=== PATIENT | female | born 1965 | race Caucasian/White ===

== ENCOUNTER → 2016-10-26 | Day surgery (SDC) | payer BC ==
[~2016-10-26] MED LIST: ALPRAZOLAM ER1 MG PO; AMBIEN CR PO; AMBIEN12.5 M1 PO; AMBIEN12.5 MG PO; AMOXICILLIN500 M1 PO; ANTIVERT PO; BACLOFEN10 MG PO; BUSPIRONE HCL7.5 MG PO; CELEXA20 MG PO; CITALOPRAM PO; DURAGESIC25 MCG EXT; FAMOTIDINE PO; LISINOPRIL10 MG PO; LORTAB 5/500 TA1 TA2; METHADONE PO; METHOCARBAMOL500 MG PO; MIRALAX119 GM PO; MIRALAX17 GM PO; MUSCLE RELAXER; OXYCODON HCL-1 UDTAB PO; OXYCODONE-ACET1 EAC1 PO; OXYCONTIN10 MG PO; OXYCONTIN20 MG PO; PERCOCET 10/3251 TAB PO; PERCOCET PO; PERCOCET10 PO; PERIDEX480 ML PO; PHENERGAN PO; PHENERGAN25 M1 PO; PRILOSEC20 MG PO; SERTRALINE HCL100 M1 PO; TIZANIDINE HCL4 M1 PO; XANAX0.5 M1 PO; XANAX1 MG PO; ZOLOFT PO
--- NOTE | ~2016-10-26 | OR ---
Unit #: [id number] #: [id number] Patient: NAHOMY JIMÉNEZ [id number] [address] [place], [place] [address] [id number] O MR#: [id number] NAME: NAHOMY JIMÉNEZ ROOM: Date of Procedure: 10/26/2016 Admission Date: 10/26/2016 Surgeon: Leonardo Peter M.D. : 1965 Attending Physician: Leonardo Peter M.D. Primary Care Physician: Francisco Jaime M.D. OPERATIVE REPORT JOB NOTE: CC: PA[facility]ENTER PREOPERATIVE DIAGNOSES 1. Neck pain. 2. Cervical facet disease. 3. Cervical spondylosis. POSTOPERATIVE DIAGNOSES 1. Neck pain. 2. Cervical facet disease. 3. Cervical spondylosis. PROCEDURE PERFORMED Cervical facet injection x2 levels with intravenous sedation and fluoroscopic guidance for needle localization. INDICATIONS FOR PROCEDURE The patient is a 51-year-old female with return of neck pain associated with known significant bilateral C4-C5 degenerative facet disease. She has partial improvement in chronic issues with medical management and the pain flares. Facet injections have been the most efficacious. She is unable to get radiofrequency procedures done. Based on history, pathology, symptomatology, and good response to treatment, we are going to proceed with facet injection at 2 levels today. DESCRIPTION OF PROCEDURE The patient was placed in the seated position. Standard monitors were applied. 4 mg of Versed and 100 mcg of fentanyl were given for sedation and anxiolysis, which were adequate. Vital signs remained stable. Sterile prep and drape then of the cervical area was performed. The skin then to the right of midline at the C4-C5 level was localized with 1% lidocaine. A 22-gauge Quincke point spinal needle was then advanced with fluoroscopic guidance to bring the needle tip within the edge of the right C4-C5 facet joint. After confirming proper positioning with fluoroscopic guidance, a dose of 1.5 mL of a mixture of 80 mg of Depo-Medrol and 2 mL of 0.25% bupivacaine were deposited, 0.5 mL was placed in the joint, the other 1 mL or so was just outside the joint. The needle was flushed and removed. Procedure #2: Left C4-C5 facet injection. The skin lateral to the C4-C5 facet joint was localized with 1% lidocaine. A 22-gauge Quincke point spinal needle was then advanced to bring the edges of the needle tip to Unit #: [id number] #: [id number] Patient: NAHOMY JIMÉNEZ within the edge of the C4-C5 facet joint. After confirming proper positioning with fluoroscopy, a dose of 1.5 mL of the previous mixture of medication was used. Again, a 0.5 mL in the joint and about 1 mL just outside the joint. The patient tolerated the procedure otherwise well and was discharged to the recovery room in stable condition. Dictated by... Leonardo Peter M.D. JENNY/derek TD: 10/26/2016 23:28 JOB #: [id number] OPERATIVE REPORT Page 1 of 1 X Leonardo Peter MD X PROCEDURE OPERATIVE NOTE
== END | disposition home or self-care (01) ==
LOC: CCSC 08:25
DX: M47.892 Other spondylosis, cervical region (principal)
CPT/HCPCS: J1040; J2250; J3010

== ENCOUNTER 2016-10-31 07:25 | Emergency (ER) | payer BC ==
--- NOTE | ~2016-10-31 | CT4 ---
[facility] A Service of [facility] RADIOLOGY TEXT RESULTS PATIENT: NAHOMY JIMÉNEZ LOCATION: SED : 67 UNIT #: [id number] AGE: [address]: Baljit Howard MD SEX: F ORDER DR: [id number] [place] [id number] E MR#: [id number] Acc #: [id number] NAME: NAHOMY JIMÉNEZ. : 1965 SEX: F STUDY DATE/TIME: 10/31/2016 8:22 UNIT: SED ROOM: STUDY DESCRIPTION: CT Abd and Pelv Wo Cont Attending Physician: Baljit Howard M.D. Ordering Physician: Baljit Howard M.D. Primary Care Physician: Francisco Jaime M.D. MEDICAL IMAGING REPORT This report is preliminary unless electronic signature is present. EXAM CT abdomen and pelvis without contrast 10/31/2016 HISTORY 51-year-old female with abdominal pain beginning this morning. COMPARISON CT abdomen and pelvis 08/15/2010 TECHNIQUE Helical scan performed through the abdomen and pelvis without oral or IV contrast. Coronal and sagittal reformatted images. This CT exam was performed with one or more of the following radiation dose reduction techniques: Automatic exposure control, adjustment of mA and/or kV according to patient size, and iterative reconstruction. FINDINGS Visualized lung bases are unremarkable. Diffuse fatty infiltration of the liver. The spleen, pancreas, both adrenal glands, and both kidneys are unremarkable allowing for lack of IV contrast. Gallbladder is surgically absent. Abdominal aorta normal in course and caliber. Small bowel is unremarkable without obstruction. Appendix is grossly normal. Colon unremarkable. No free fluid or free air. The urinary bladder, uterus, and both adnexa are unremarkable. No free pelvic fluid. No acute bony abnormality. IMPRESSION 1. Hepatic steatosis. [facility] A Service of [facility] RADIOLOGY TEXT RESULTS PATIENT: NAHOMY JIMÉNEZ LOCATION: SED : 67 UNIT #: [id number] AGE: [address]: Baljit Howard MD SEX: F ORDER DR: 2. Normal appendix. 3. Negative for urinary tract stones or hydronephrosis. 4. Cholecystectomy. Dictated by... Francisco Corona M.D. THIS IS AN ELECTRONICALLY VERIFIED REPORT Francisco Corona M.D. at 11/01/2016 8:42 AM DAJA/kenia TD: 10/31/2016 20:48 JOB #: [id number] MEDICAL IMAGING REPORT Page 1 of 1
[~2016-10-31 07:25] MED LIST changes: -AMBIEN12.5 MG PO; -BUSPIRONE HCL7.5 MG PO; -CELEXA20 MG PO; -CITALOPRAM PO; -OXYCODONE-ACET1 EAC1 PO; -PERCOCET PO; -PERCOCET10 PO; -TIZANIDINE HCL4 M1 PO; -XANAX1 MG PO
[2016-10-31 07:51] LABS: BASOPHIL# 0.1 X10e3 (0-0.3); BASOPHIL% 0.5 % (0-2.5); DIFF IND NO; EOSINOPHIL# 0.1 X10e3 (0-0.7); EOSINOPHIL% 0.6 % (0.0-7.0); HEMOGLOBIN 17.1 gm/dL (12.0-16.0); LYMPHOCYTE# 0.8 X10e3 (1.0-3.5); LYMPHOCYTE% 7.1 % (17.0-45.0); MEAN CELL VOLUME 88.3 FL (83-96); MEAN CORPUSCULAR HEMOGLOBIN 30.8 PG (28-34); MEAN CORPUSCULAR HGB CONC 34.9 g/dL (30-36); MONOCYTE# 0.6 X10e3 (0-1.0); MONOCYTE% 5.5 % (3.0-12.0); NEUTROPHIL# 9.5 X10e3 (1.5-7.1); NEUTROPHIL% 86.3 % (40-75); PLATELET COUNT 138 X10e3 (140-420); RED BLOOD COUNT 5.55 X10e (3.90-5.30); RED CELL DISTRIBUTION WIDTH 13.8 % (11.0-15.5)
[2016-10-31 08:11] LABS: ALBUMIN SERUM 5.3 g/dL (3.5-5.0); BILIRUBIN, DIRECT 0.2 mg/dL (0.0-0.2); BILIRUBIN,INDIRECT 0.7 mg/dL (0.0-0.9); BILIRUBIN,TOTAL 0.9 mg/dL (0.2-2.0); BUN/CREATININE RATIO 28.88; CALCIUM SERUM 9.7 mg/dL (8.4-10.2); CREATININE SERUM 0.9 mg/dL (0.6-1.4); GLOM FILT RATE Estimated 74.6 mL/min (>60); POTASSIUM 3.8 mmol/L (3.5-5.1); PROTEIN TOTAL SERUM 8.2 g/dL (6.0-8.3)
[2017-04-05] MEDS ORDERED: TIZANIDINE HCL4 M1 PO (11:20)
[2017-04-05] MEDS ORDERED: PHENERGAN PO (11:20)
[2017-04-05] MEDS ORDERED: CELEXA20 MG PO (11:20)
[2017-04-05] MEDS ORDERED: OXYCONTIN20 MG PO (11:21)
[2017-04-05] MEDS ORDERED: XANAX1 MG PO (11:21)
[2017-04-05] MEDS ORDERED: PERCOCET10 PO (11:21)
[2017-04-05] MEDS ORDERED: AMBIEN12.5 MG PO (11:22)
[2017-04-05] MEDS ORDERED: BUSPIRONE HCL7.5 MG PO (11:22)
== END 2016-10-31 09:34 | disposition home or self-care (01) ==
LOC: SED 07:25
PROVIDERS: Emergency Medicine
DX: K29.00 Acute gastritis without bleeding (principal); K52.9 Noninfective gastroenteritis and colitis, unspecified; F31.9 Bipolar disorder, unspecified; F17.210 Nicotine dependence, cigarettes, uncomplicated; Z90.49 Acquired absence of other specified parts of digestive tract; Z88.5 Allergy status to narcotic agent; Z88.8 Allergy status to other drugs, medicaments and biological substances; Z79.899 Other long term (current) drug therapy
CPT/HCPCS: 36415; 74176; 80048; 80076; 82150; 83690; 85025; 96372; 96374; 96376; 99284; C9113; G0480; J1170; J2550

== ENCOUNTER → 2016-11-02 | Day surgery (SDC) | payer BC ==
[~2016-11-02] MED LIST changes: +AMBIEN12.5 MG PO; +BUSPIRONE HCL7.5 MG PO; +CELEXA20 MG PO; +CITALOPRAM PO; +OXYCODONE-ACET1 EAC1 PO; +PERCOCET PO; +PERCOCET10 PO; +TIZANIDINE HCL4 M1 PO; +XANAX1 MG PO
--- NOTE | ~2016-11-02 | OR ---
Unit #: [id number] #: [id number] Patient: NAHOMY JIMÉNEZ [id number] [address] [place], [place] [address] [id number] O MR#: [id number] NAME: NAHOMY JIMÉENZ ROOM: Date of Procedure: 11/02/2016 Admission Date: 11/02/2016 Surgeon: Leonardo Peter M.D. : 1965 Attending Physician: Leonardo Peter M.D. Referring Physician: Henri Crain M.D. Primary Care Physician: Francisco Jaime M.D. OPERATIVE REPORT PREOPERATIVE DIAGNOSES Neck pain, cervical facet disease and cervical spondylosis. POSTOPERATIVE DIAGNOSES Neck pain, cervical facet disease and cervical spondylosis. PROCEDURE PERFORMED Cervical facet injection x2 levels with intravenous sedation under fluoroscopic guidance for needle localization. HISTORY The patient is a 51-year-old female with neck pain associated with degenerative cervical facet disease. She is not a surgical candidate. Medications helped somewhat when the pain flares. Facet injections have been the only modality to adequately settle these symptoms down. Typically a single injection is sufficient. She recently had injection that helped, but not to its typical degree, so we are going to proceed with a second injection today and then hopefully follow the patient up in several weeks' time at [facility]. DESCRIPTION OF PROCEDURE PROCEDURE #1: Right cervical facet injection with intravenous sedation under fluoroscopic guidance for needle localization: Fluoroscopy was used to identify the location of the right C4-5 facet joint. The skin lateral to this was localized with 1% lidocaine. A 22-gauge Quincke point needle was then advanced with biplanar fluoroscopic guidance to bring the needle tip to within the edge of the right C4-5 facet joint. After confirming proper positioning with fluoroscopy, a dose of 1 mL of a mixture of 80 mg of Depo-Medrol and 1 mL of 0.25% bupivacaine were deposited, 0.5 mL was placed in the joint and 0.5 mL just outside the joint. The needle was flushed and removed. PROCEDURE #2: Left C4-5 facet injection with fluoroscopic guidance: Fluoroscopy was used to identify the left C4-5 facet joint. The skin lateral to this was localized with 1% lidocaine. A 22-gauge Quincke point needle was then advanced with biplanar fluoroscopy to get the needle tip to within the edge of the left C4-5 facet joint. After confirming this with fluoroscopy, a dose of 1 mL of a mixture of 80 mg of Depo-Medrol and 1 mL of 0.25% bupivacaine were deposited. The needle was flushed and removed. The patient tolerated the entirety of the procedure well and was discharged to the recovery room in stable condition. Unit #: [id number] #: [id number] Patient: NAHOMY JIMÉNEZ Yanet Dictated by... Ledy Cortes/derek TD: 11/02/2016 10:05 JOB #: [id number] OPERATIVE REPORT Page 1 of 1 X Leonardo Peter MD X PROCEDURE OPERATIVE NOTE
== END | disposition home or self-care (01) ==
LOC: CCSC 07:59
DX: M47.892 Other spondylosis, cervical region (principal)
CPT/HCPCS: J1040; J2250; J3010

== ENCOUNTER → 2016-11-09 | Day surgery (SDC) | payer BC ==
--- NOTE | ~2016-11-09 | OR ---
Unit #: [id number] #: [id number] Patient: NAHOMY JIMÉNEZ [id number] [address] [place], [place] [address] [id number] O MR#: [id number] NAME: NAHOMY JIMÉNEZ ROOM: Date of Procedure: 11/09/2016 Admission Date: 11/09/2016 Surgeon: Leonardo Peter M.D. : 1965 Attending Physician: Leonardo Peter M.D. Referring Physician: Leonardo Peter M.D. Primary Care Physician: Francisco Jaime M.D. OPERATIVE REPORT JOB NOTE: CC: PAIN CENTER PREOPERATIVE DIAGNOSES Neck pain and cervical facet disease. POSTOPERATIVE DIAGNOSES Neck pain and cervical facet disease. PROCEDURE PERFORMED Cervical facet injection x2 levels with intravenous sedation and fluoroscopic guidance for needle localization. INDICATIONS FOR PROCEDURE The patient is a 51-year-old female with return of neck pain. She notes significant facet disease. She is unable to get radiofrequency ablation, which might last longer. Generally, she has done fairly well with medical management and p.r.n. single facet injections. If that does not work as well, the plan is to trial a small series of injections if that work somewhat better. Plan is to repeat a final injection today. DESCRIPTION OF PROCEDURE The patient was placed in a seated position. Standard monitors were applied. 4 mg of Versed and 100 mcg of fentanyl were given for sedation and anxiolysis, which were adequate. Vital signs remained stable. Sterile prep and drape then of the cervical area was performed. Procedure #1: Right C4-C5 facet injection. The skin to the right of midline was localized overlying the right C4-C5 facet joint. Fluoroscopy was then used to help direct a 22-gauge Quincke point spinal needle to within the edge of that right C4-C5 facet. After confirming this with fluoroscopy, a dose of 1 mL of a mixture of 80 mg of Depo-Medrol and 1 mL of 0.25% bupivacaine were deposited. The needle was flushed and removed. The patient tolerated this part of procedure well. Procedure #2: Left C4-C5 facet injection with fluoroscopic guidance. Fluoroscopy was used to identify the location of the left L4-L5 facet joints. The skin lateral to this was localized with 1% lidocaine. A 22-gauge Quincke point needle was then advanced with biplanar fluoroscopic guidance to bring the needle tip to within the edge of the left C4-C5 facet joint. After confirming this, a dose of 1 mL of mixture of 80 mg Depo-Medrol, 1 mL of 0.25% bupivacaine were deposited, 0.5 mL within the joint and 0.5 mL just outside. The needle was flushed and removed. The Unit #: [id number] #: [id number] Patient: NAHOMY JIMÉNEZ patient tolerated the entire procedure well and was discharged to the recovery room in stable condition. Dictated by... Ledy Cortes/derek TD: 11/09/2016 09:42 JOB #: [id number] OPERATIVE REPORT Page 1 of 1 X Leonardo Peter MD X PROCEDURE OPERATIVE NOTE
== END | disposition home or self-care (01) ==
LOC: CCSC 08:11
DX: M47.812 Spondylosis without myelopathy or radiculopathy, cervical region (principal)
CPT/HCPCS: J1040; J2250; J3010

== ENCOUNTER → 2017-01-11 | Day surgery (SDC) | payer BC ==
--- NOTE | ~2017-01-11 | OR ---
Unit #: [id number] #: [id number] Patient: NAHOMY JIMÉNEZ [id number] [address] [place], [place] [address] [id number] O MR#: [id number] NAME: NAHOMY JIMÉNEZ ROOM: Date of Procedure: 01/11/2017 Admission Date: 01/11/2017 Surgeon: Leonardo Peter M.D. : 1965 Attending Physician: Leonardo Peter M.D. Primary Care Physician: Francisco Jaime M.D. OPERATIVE REPORT PREOPERATIVE DIAGNOSES Neck pain and cervical facet disease. POSTOPERATIVE DIAGNOSES Neck pain and cervical facet disease. PROCEDURE PERFORMED Cervical facet injection x2 levels with intravenous sedation and fluoroscopic guidance for needle localization. INDICATIONS FOR PROCEDURE The patient is a 51-year-old female with return of neck pain due to known significant C4-C5 facet disease. She refuses radiofrequency ablation. She does best with p.r.n. facet injections every 3 to 4 months. Pain has returned in its typical distribution, so plan, based on history, pathology, symptomatology, and treatment options, is to repeat facet injections. DESCRIPTION OF PROCEDURE Procedure #1: Left C4-C5 facet injection with intravenous sedation and fluoroscopic guidance. 4 mg of Versed and 100 mcg of fentanyl were given for sedation and anxiolysis, which were adequate. Sterile prep and drape of the cervical area was performed. The skin then to the left of midline lateral to the C4-C5 facet joint was localized with 1% lidocaine. A 22-gauge Quincke point needle was advanced with fluoroscopic guidance to bring the needle tip to within the edge of the left C4-C5 facet joint. After confirming proper positioning, dose of 1 mL of mixture of 80 mg of Depo-Medrol and 1 mL of 0.25% bupivacaine were deposited. The needle was flushed and removed. The patient tolerated this part of procedure well. Procedure #2: Right C4-C5 facet injection with fluoroscopic guidance. Fluoroscopy was used to identify the right C4-C5 facet joint. The skin lateral to this was then localized with 1% lidocaine. A 22-gauge Quincke point spinal needle was advanced with fluoroscopic guidance to bring the needle tip to within the edge of the right C4-C5 facet joint. After confirming proper positioning, dose of 1 mL of a mixture of 80 mg of Depo-Medrol and 1 mL of 0.25% bupivacaine were deposited. The patient tolerated the procedure well. The needle was flushed and removed. She was discharged to recovery room in stable condition. Unit #: [id number] #: [id number] Patient: NAHOMY JIMÉNEZ Dictated by... Ledy Cortes/derek TD: 01/11/2017 20:07 JOB #: [id number] OPERATIVE REPORT Page 1 of 1 X Leonardo Peter MD X PROCEDURE OPERATIVE NOTE
== END | disposition home or self-care (01) ==
LOC: CCSC 07:51
DX: M47.812 Spondylosis without myelopathy or radiculopathy, cervical region (principal); M53.82 Other specified dorsopathies, cervical region; F41.9 Anxiety disorder, unspecified; F32.9 Major depressive disorder, single episode, unspecified; Z88.6 Allergy status to analgesic agent; Z88.8 Allergy status to other drugs, medicaments and biological substances; Z79.891 Long term (current) use of opiate analgesic; Z79.899 Other long term (current) drug therapy
CPT/HCPCS: J1040; J2250; J3010

== ENCOUNTER 2017-02-09 08:10 | Emergency (ER) | payer BC ==
--- NOTE | ~2017-02-09 | CT71 ---
[facility] A Service of [facility] RADIOLOGY TEXT RESULTS PATIENT: NAHOMY JIMÉNEZ LOCATION: SED : 67 UNIT #: [id number] AGE: [address]: Baljit Howard MD SEX: F ORDER DR: [id number] [place] [address] [id number] E MR#: [id number] Acc #: [id number] NAME: NAHOMY JIMÉNEZ. : 1965 SEX: F STUDY DATE/TIME: 02/09/2017 9:31 UNIT: SED ROOM: STUDY DESCRIPTION: CT Head Wo Contrast Attending Physician: Baljit Howard M.D. Ordering Physician: Baljit Howard M.D. Primary Care Physician: Francisco Jaime M.D. MEDICAL IMAGING REPORT This report is preliminary unless electronic signature is present. EXAM Head CT, no contrast, 02/09/2017. INDICATIONS 51-year-old female with a headache. Woke up with a headache this morning. Diffuse headache symptoms. History of seizures 10 years ago. TECHNIQUE Noncontrast CT of the brain was performed. This CT exam was performed with one or more of the following radiation dose reduction techniques: automatic exposure control, adjustment of mA and/or kV according to patient size, and iterative reconstruction. COMPARISON We have no comparison studies. FINDINGS CT brain Exam is degraded by motion artifact. These were apparently the best images possible and the notes indicate the patient was rescanned. Sulci and ventricles are unremarkable. No midline shift. No evidence of acute intracranial hemorrhage. There is no mass, mass effect or edema to suggest acute infarct and no extraaxial fluid collections are present. The globes are intact. The bones are intact. Sinuses are clear. Incidental tiny choroid plexus calcifications noted. IMPRESSION 1. No clearly acute intracranial process. No evidence of acute intracranial hemorrhage. 2. Motion degraded study. We have no comparisons. [facility] A Service of [facility] RADIOLOGY TEXT RESULTS PATIENT: NAHOMY JIMÉNEZ LOCATION: SED : 67 UNIT #: [id number] AGE: [address]: Baljit Howard MD SEX: F ORDER DR: Dictated by... Yovany Salas M.D. THIS IS AN ELECTRONICALLY VERIFIED REPORT Yovany Salas M.D. at 02/09/2017 1:46 PM JORGE A/leona TD: 02/09/2017 12:38 JOB #: [id number] MEDICAL IMAGING REPORT Page 1 of 1
[~2017-02-09 08:10] MED LIST changes: -AMBIEN12.5 MG PO; -BUSPIRONE HCL7.5 MG PO; -CELEXA20 MG PO; -CITALOPRAM PO; -OXYCODONE-ACET1 EAC1 PO; -PERCOCET PO; -PERCOCET10 PO; -TIZANIDINE HCL4 M1 PO; -XANAX1 MG PO
[2017-02-09] MEDS ORDERED: CITALOPRAM PO (08:16)
[2017-02-09] MEDS ORDERED: PERCOCET PO (08:16)
[2017-04-05] MEDS ORDERED: PHENERGAN PO (11:20)
[2017-04-05] MEDS ORDERED: TIZANIDINE HCL4 M1 PO (11:20)
[2017-04-05] MEDS ORDERED: CELEXA20 MG PO (11:20)
[2017-04-05] MEDS ORDERED: PERCOCET10 PO (11:21)
[2017-04-05] MEDS ORDERED: XANAX1 MG PO (11:21)
[2017-04-05] MEDS ORDERED: OXYCONTIN20 MG PO (11:21)
[2017-04-05] MEDS ORDERED: AMBIEN12.5 MG PO (11:22)
[2017-04-05] MEDS ORDERED: BUSPIRONE HCL7.5 MG PO (11:22)
== END 2017-02-09 10:42 | disposition home or self-care (01) ==
LOC: SED 08:10
DX: G43.909 Migraine, unspecified, not intractable, without status migrainosus (principal); I10 Essential (primary) hypertension; Z90.49 Acquired absence of other specified parts of digestive tract; Z87.891 Personal history of nicotine dependence; Z88.5 Allergy status to narcotic agent; Z88.8 Allergy status to other drugs, medicaments and biological substances; Z79.899 Other long term (current) drug therapy
CPT/HCPCS: 70450; 96372; 99284; J1170; J2550

== ENCOUNTER 2017-02-19 20:32 | Emergency (ER) | payer BC ==
[~2017-02-19] VITALS: Ht 154.9 cm; Wt 71.7 kg
--- NOTE | ~2017-02-19 | CR172 ---
[facility] A Service of [facility] & [facility] RADIOLOGY TEXT RESULTS PATIENT: NAHOMY JIMÉNEZ LOCATION: SED : 67 UNIT #: [id number] AGE: [address]: Bee Schneider SEX: F ORDER DR: [id number] [address] [address] [id number] E MR#: [id number] Acc #: [id number] NAME: NAHOMY JIMÉNEZ : 1965 SEX: F STUDY DATE/TIME: 02/19/2017 21:28 UNIT: SED ROOM: STUDY DESCRIPTION: CR Knee 3 Views Lt Attending Physician: Bee Schneider Pa-C Ordering Physician: Bee Schneider Pa-C Primary Care Physician: Francisco Jaime M.D. MEDICAL IMAGING REPORT This report is preliminary unless electronic signature is present. EXAM Left knee 3 views HISTORY Knee pain and swelling for 5 days. No injury. FINDINGS AP and lateral projection of the knee shows smooth articular anatomy without indication of fracture or dislocation at the major weight-bearing surface of the knee. There is no indication of radiopaque foreign body about the knee surface or joint effusion. IMPRESSION Normal knee. Dictated by... Steve Campuzano M.D. THIS IS AN ELECTRONICALLY VERIFIED REPORT Steve Campuzano M.D. at 02/20/2017 11:20 PM DFL/dominique TD: 02/19/2017 23:41 JOB #: [id number] MEDICAL IMAGING REPORT Page 1 of 1
[~2017-02-19 20:32] MED LIST changes: +CITALOPRAM PO; +PERCOCET PO
[2017-04-05] MEDS ORDERED: PHENERGAN PO (11:20)
[2017-04-05] MEDS ORDERED: TIZANIDINE HCL4 M1 PO (11:20)
[2017-04-05] MEDS ORDERED: CELEXA20 MG PO (11:20)
[2017-04-05] MEDS ORDERED: PERCOCET10 PO (11:21)
[2017-04-05] MEDS ORDERED: OXYCONTIN20 MG PO (11:21)
[2017-04-05] MEDS ORDERED: XANAX1 MG PO (11:21)
[2017-04-05] MEDS ORDERED: AMBIEN12.5 MG PO (11:22)
[2017-04-05] MEDS ORDERED: BUSPIRONE HCL7.5 MG PO (11:22)
== END 2017-02-19 23:38 | disposition home or self-care (01) ==
LOC: SED 20:32
DX: M25.562 Pain in left knee (principal); F17.200 Nicotine dependence, unspecified, uncomplicated; Z88.5 Allergy status to narcotic agent; Z88.8 Allergy status to other drugs, medicaments and biological substances; Z79.899 Other long term (current) drug therapy
CPT/HCPCS: 29530; 73562; 99283

== ENCOUNTER 2017-02-21 03:42 | Emergency (ER) | payer BC ==
[2017-04-05] MEDS ORDERED: TIZANIDINE HCL4 M1 PO (11:20)
[2017-04-05] MEDS ORDERED: CELEXA20 MG PO (11:20)
[2017-04-05] MEDS ORDERED: PHENERGAN PO (11:20)
[2017-04-05] MEDS ORDERED: PERCOCET10 PO (11:21)
[2017-04-05] MEDS ORDERED: OXYCONTIN20 MG PO (11:21)
[2017-04-05] MEDS ORDERED: XANAX1 MG PO (11:21)
[2017-04-05] MEDS ORDERED: BUSPIRONE HCL7.5 MG PO (11:22)
[2017-04-05] MEDS ORDERED: AMBIEN12.5 MG PO (11:22)
== END 2017-02-21 06:37 | disposition home or self-care (01) ==
LOC: CED 03:42
DX: R60.0 Localized edema (principal); F17.200 Nicotine dependence, unspecified, uncomplicated; Z88.5 Allergy status to narcotic agent; Z88.8 Allergy status to other drugs, medicaments and biological substances; Z79.899 Other long term (current) drug therapy
CPT/HCPCS: 29505; 99283

== ENCOUNTER 2017-03-04 16:26 | Observation (INO) | payer BC ==
[~2017-03-04] VITALS: Ht 157.5 cm; Wt 82.0 kg
--- NOTE | ~2017-03-04 | HM ---
Unit #: [id number] #: [id number] Patient: NAHOMY JIMÉNEZ [id number] [address] [place], [place] [address] [id number] I MR#: [id number] NAME: NAHOMY JIMÉNEZ. : 1965 SEX: F STUDY DATE/TIME: 03/05/2017 UNIT: [facility] ROOM: [facility] STUDY DESCRIPTION: Holter monitor Attending Physician: Mita Morales M.D. Primary Care Physician: Francisco Jaime M.D. CARDIOLOGY REPORT EXAM Holter monitor. DATE APPLIED 03/05/2017 DATE SCANNED 03/10/[address] Porfirio Garcia READ BY Porfirio Garcia M.D. INDICATION Chest pain and palpitations, PVCs, PACs. SUMMARY The patient was monitored for 24 hours. There were 102,982 QRS complexes analyzed. Less than 1% were ventricular or supraventricular. The average heart rate was 72 beats per minute. The rhythm was sinus. Minimum heart rate of 54 beats per minute occurred at approximately 10:20 p.m. The maximum heart rate of 118 beats per minute occurred at approximately noon. There were no pauses. SUPRAVENTRICULAR ECTOPY: There were 12 isolated beats with no runs. VENTRICULAR ECTOPY: There were 72 isolated beats with no runs. PATIENT ACTIVATED EVENTS: SYMPTOMS: The patient experienced left arm pain during housework at approximately 5:30 p.m., chest discomfort with drinking coffee at approximately 7:30 p.m., numbness while lying down at approximately 8 o'clock p.m., numbness while lying down at approximately 8:30 p.m., pain, pressure, anxiety and shortness of breath at approximately 12:15 a.m., sharp pain, lightheadedness and stress at approximately 12:30 a.m. and left arm pain while eating lunch at approximately 2:20 a.m. During all of these episodes, the rhythm was sinus, there were no dysrhythmias noted, and the heart rate varied between 60 and 80 beats per minute. IMPRESSION 1. Normal Holter monitor. Unit #: [id number] #: [id number] Patient: NAHOMY JIMÉNEZ 2. Symptoms did not correlate with any dysrhythmias or abnormalities. 3. Less than expected supraventricular and ventricular ectopy. Dictated by... Ledy Gale/meghann TD: 03/10/2017 11:53 JOB #: [id number] CARDIOLOGY REPORT Page 1 of 1 X Porfirio Garcia MD HOLTER MONITOR REPORT
--- NOTE | ~2017-03-04 | US37 ---
[facility] A Service of [facility] RADIOLOGY TEXT RESULTS PATIENT: NAHOMY JIMÉNEZ LOCATION: [address] : [birth year] UNIT #: [id number] AGE: [address]: Mita Morales MD SEX: F ORDER DR: [id number] [facility] [address] [place], [place] [address] [id number] I MR#: [id number] Acc #: [id number] NAME: NAHOMY JIMÉNEZ. : 1965 SEX: F STUDY DATE/TIME: 03/05/2017 10:10 UNIT: [facility] ROOM: [facility] STUDY DESCRIPTION: US Carotid W/Doppler Bilateral Attending Physician: Mita Morales M.D. Ordering Physician: Porfirio Garica M.D. Primary Care Physician: Francisco Jaime M.D. MEDICAL IMAGING REPORT This report is preliminary unless electronic signature is present DATE OF EXAM 03/05/2017 EXAMINATION Bilateral carotid duplex. CLINICAL HISTORY Dizziness, and chest pain x1 week. FINDINGS There is patent flow seen throughout the right common carotid, internal carotid and external carotid arteries. There is some intimal hyperplasia noted throughout, but no significant atherosclerosis is noted. The right common carotid artery peak velocity is 80 cm/sec. The right internal carotid artery peak systolic over end diastolic velocities are: proximal 59/25 cm/sec, mid 44/15 cm/sec, distal 71/36 cm/sec. The right external carotid artery peak velocity is 100 cm/sec, and vertebral artery 39 cm/sec. The right ICA:CCA ratio is 0.9. There is patent flow seen throughout the left common carotid, internal carotid, external carotid arteries. There is some intimal hyperplasia noted throughout the left common carotid artery. There is no significant atherosclerosis that is noted. The left common carotid artery peak velocity is 76 cm/sec. The left internal carotid artery peak systolic over end-diastolic velocities are: proximal 65/33 cm/sec, mid 59/30 cm/sec, distal 116/45 cm/sec. The left external carotid artery peak velocity is 92 cm/sec, and vertebral artery 50 cm/sec. The left ICA:CCA ratio is 1.5. IMPRESSION 1. Normal study of the right carotid artery, with no significant atherosclerosis noted. [facility] A Service of [facility] RADIOLOGY TEXT RESULTS PATIENT: NAHOMY JIMÉNEZ LOCATION: [facility] CICCU3-22 : [birth year] UNIT #: [id number] AGE: [address]: Mita Morales MD SEX: F ORDER DR: 2. Normal study of the left carotid artery, with no significant atherosclerosis noted. 3. Vertebral flow is antegrade bilaterally. Dictated by... Brown Miranda M.D. THIS IS AN ELECTRONICALLY VERIFIED REPORT Brown Miranda M.D. at 03/15/2017 4:11 PM Robin TD: 03/05/2017 16:38 JOB #: [id number] MEDICAL IMAGING REPORT Page 1 of 1 COPY
--- NOTE | ~2017-03-04 | TH ---
Unit #: [id number] #: [id number] Patient: NAHOMY JIMÉNEZ [id number] [address] [address] [id number] I MR#: [id number] NAME: NAHOMY JIMÉNEZ : 1965 SEX: F STUDY DATE/TIME: 03/05/2017 UNIT: [facility] ROOM: [facility] STUDY DESCRIPTION: Stress nuclear Attending Physician: Mita Morales M.D. Primary Care Physician: Francisco Jaime M.D. CARDIOLOGY REPORT EXAM Stress nuclear. FINDINGS Result text under stress test. Please see this report for result text. Dictated by... Ledy Gale/leona TD: 03/08/2017 06:45 JOB #: [id number] CARDIOLOGY REPORT Page 1 of 1 X Porfirio Garcia MD CARDIOLOGY REPORT
--- NOTE | ~2017-03-04 | EKG ---
PATIENT: NAHOMY JIMÉNEZ UNIT #: [id number] Ventricular Rate: 96 BPM Atrial Rate: 96 BPM P-R Interval: 150 ms QRS Duration: 76 ms Q-T Interval: 358 ms QTC Calculation(Bezet): 452 ms P [place]: 65 degrees Calculated R [place]: 2 degrees Calculated T [place]: 47 degrees Diagnosis Line: Normal sinus rhythm Diagnosis Line: Normal ECG Diagnosis Line: When compared with ECG of 21-JAN-2016 10:39, Diagnosis Line: No significant change was found Diagnosis Line: Confirmed by HEATHER SNYDER MD ([id number]) on 03/04/2017 Diagnosis Line: 5:05:21 PM INTERPRETING MD: CLAUDIO TAVAREZ
--- NOTE | ~2017-03-04 | EKG ---
PATIENT: NAHOMY JIMÉNEZ UNIT #: [id number] Ventricular Rate: 63 BPM Atrial Rate: 63 BPM P-R Interval: 170 ms QRS Duration: 78 ms Q-T Interval: 434 ms QTC Calculation(Bezet): 444 ms P [place]: 74 degrees Calculated R [place]: 44 degrees Calculated T [place]: 22 degrees Diagnosis Line: Normal sinus rhythm Diagnosis Line: Normal ECG Diagnosis Line: When compared with ECG of 04-MAR-2017 16:40, Diagnosis Line: Vent. rate has decreased BY 33 BPM Diagnosis Line: Confirmed by HEATHER SNYDER MD ([id number]) on 03/06/2017 Diagnosis Line: 5:52:00 PM INTERPRETING MD: CLAUDIO TAVAREZ
--- NOTE | ~2017-03-04 | CR72 ---
[facility] of [facility] RADIOLOGY TEXT RESULTS PATIENT: NAHOMY JIMÉNEZ LOCATION: [place] [address] : [birth year] UNIT #: [id number] AGE: [address]: Mita Morales MD SEX: F ORDER DR: [id number] [facility] [address] [facility]. [place], [place] [address] [id number] MR#: [id number] Acc #: [id number] NAME: NAHOMY JIMÉNEZ. : 1965 SEX: F STUDY DATE/TIME: 03/04/2017 17:11 UNIT: [facility] ROOM: [facility] STUDY DESCRIPTION: CR Chest Single View Portable Attending Physician: Mita Morales M.D. Ordering Physician: Ed Lauri Lepe M.D. Primary Care Physician: Francisco Jaime M.D. MEDICAL IMAGING REPORT This report is preliminary unless electronic signature is present EXAM Portable chest x-ray, 03/04/2017. HISTORY Chest pain. Short of air, dizziness, left-side tingling 3 days ago. Skin cancer. Smoker 25 years. TECHNIQUE AP radiograph of the chest is presented. COMPARISON 01/21/2016 FINDINGS Heart and mediastinum within normal limits of size and contour. The lungs are moderately well inflated. Similar appearance on prior study. No acute pulmonary disease, pleural effusion, or pneumothorax. No suspicious nodule. No acute bony abnormality. Very mild levoscoliosis of the thoracic spine, not seen on prior study and probably positional in nature. Dictated by... Marcus Gill M.D. THIS IS AN ELECTRONICALLY VERIFIED REPORT Marcus Gill M.D. at 03/05/2017 9:43 PM JESSENIA/donnell TD: 03/05/2017 07:48 JOB #: [id number] [facility] RADIOLOGY TEXT RESULTS PATIENT: NAHOMY JIMÉNEZ LOCATION: [address] : [birth year] UNIT #: [id number] AGE: [address]: Mita Morales MD SEX: F ORDER DR: MEDICAL IMAGING REPORT Page 1 of 1 COPY
--- NOTE | ~2017-03-04 | ST ---
Unit #: [id number] #: [id number] Patient: NAHOMY JIMÉNEZ [id number] [address] [address] [id number] I MR#: [id number] NAME: NAHOMY JIMÉNEZ. : 1965 SEX: F STUDY DATE/TIME: 03/05/2017 UNIT: [facility] ROOM: [facility] STUDY DESCRIPTION: Stress test Attending Physician: Mita Morales M.D. Primary Care Physician: Francisco Jaime M.D. CARDIOLOGY REPORT EXAM Stress nuclear study and ECG combined. INDICATIONS Chest pain, hypertension, inability to exercise adequately. SUMMARY Patient received Lexiscan intravenously while at rest as well as technetium 99 Cardiolite, 11 and 31.8 mCi at rest and stress, respectively. Appropriate views were obtained. FINDINGS Rare PVCs were noted. Shortness of breath and nausea occurred during the infusion, resolved in recover, but no chest pain was noted by the patient. The ECG showed no acute ST changes either at rest or stress. There is no significant dysrhythmia. Heart rate increased from 86 to 117 and blood pressure increased 139/109 to 156/85. Perfusion images demonstrate apical thinning with intestinal artifact, but otherwise normal perfusion throughout the myocardium both at rest and stress. Planar images demonstrate [id number] patient motion both at rest and stress. There is no significant lung uptake, LV or RV enlargement. End-diastolic volume is 45 mL, ejection fraction is greater than 65%. Summed stress score is 1. IMPRESSION 1. Myocardial perfusion scan shows no ischemia or infarction.. 2. Normal wall motion with excellent ejection fraction. Dictated by... Porfirio Garcia M.D. NISSA/leona TD: 03/08/2017 06:35 JOB #: [id number] Unit #: [id number] #: [id number] Patient: NAHOMY JIMÉNEZ CARDIOLOGY REPORT Page 1 of 1 X Porfirio Garcia MD CARDIOLOGY REPORT
[2017-03-04 17:26] LABS: POC - CKMB <1.0 ng/mL (0.0-7.9); POC - TROPONIN <0.05 ng/mL (<=0.05)
[2017-03-04 17:58] LABS: ALBUMIN SERUM 4.6 g/dL (3.5-5.0); BILIRUBIN, DIRECT 0.1 mg/dL (0.0-0.2); BILIRUBIN,INDIRECT 0.6 mg/dL (0.0-0.9); BILIRUBIN,TOTAL 0.7 mg/dL (0.2-2.0); BUN/CREATININE RATIO 14.44; CALCIUM SERUM 9.4 mg/dL (8.4-10.2); CREATININE SERUM 0.9 mg/dL (0.6-1.4); GLOM FILT RATE Estimated 74.6 mL/min (>60); POTASSIUM 3.7 mmol/L (3.5-5.1); PROTEIN TOTAL SERUM 7.6 g/dL (6.0-8.3)
[2017-03-04 18:01] LABS: BASOPHIL# 0.1 X10e3 (0-0.3); EOSINOPHIL# 0.1 X10e3 (0-0.7); EOSINOPHIL% 1.1 % (0.0-7.0); HEMATOCRIT 43.7 % (35.0-45.0); HEMOGLOBIN 15.6 gm/dL (12.0-16.0); LYMPHOCYTE# 1.9 X10e3 (1.0-3.5); LYMPHOCYTE% 31.8 % (17.0-45.0); MEAN CORPUSCULAR HEMOGLOBIN 32.5 PG (28-34); MEAN CORPUSCULAR HGB CONC 35.7 g/dL (30-36); MEAN PLATELET VOLUME 9.2 FL (6.5-11.5); MONOCYTE# 0.4 X10e3 (0-1.0); MONOCYTE% 6.1 % (3.0-12.0); NEUTROPHIL# 3.5 X10e3 (1.5-7.1); PLATELET COUNT 146 X10e3 (140-420); RED CELL DISTRIBUTION WIDTH 12.7 % (11.0-15.5); WHITE BLOOD COUNT 5.9 X10e3 (4.0-10.5)
[2017-03-04 18:02] LABS: DIFF IND NO
[2017-03-04 18:44] LABS: POC - CKMB <1.0 ng/mL (0.0-7.9); POC - TROPONIN <0.05 ng/mL (<=0.05)
[2017-03-04] MEDS ORDERED: OXYCODONE-ACET1 EAC1 PO (21:09)
[2017-03-04] MEDS ORDERED: AMBIEN12.5 M1 PO (21:10)
[2017-03-05 06:04] LABS: CK TOTAL 52 IU/L (26-140)
[2017-03-05 12:31] LABS: CHOLESTEROL 194 mg/dL (0-200); HDL CHOLESTEROL 36 mg/dL (35-95); LDL CHOLESTEROL 87 mg/dL (-130); LDL/HDL RATIO 2 RATIO (0-4); TRIGLYCERIDES 353 mg/dL (10-160)
[2017-04-05] MEDS ORDERED: PHENERGAN PO (11:20)
[2017-04-05] MEDS ORDERED: CELEXA20 MG PO (11:20)
[2017-04-05] MEDS ORDERED: TIZANIDINE HCL4 M1 PO (11:20)
[2017-04-05] MEDS ORDERED: XANAX1 MG PO (11:21)
[2017-04-05] MEDS ORDERED: PERCOCET10 PO (11:21)
[2017-04-05] MEDS ORDERED: OXYCONTIN20 MG PO (11:21)
[2017-04-05] MEDS ORDERED: AMBIEN12.5 MG PO (11:22)
[2017-04-05] MEDS ORDERED: BUSPIRONE HCL7.5 MG PO (11:22)
== END 2017-03-05 16:55 | disposition home or self-care (01) | DRG 313 ==
LOC: CED 16:26 → CICCU3 18:40 → CEDOF 18:40 → CED 19:33 → CEDOF 20:42 → CICCU3 20:42
PROVIDERS: Emergency Medicine
DX: R07.9 Chest pain, unspecified (principal); I25.2 Old myocardial infarction; Z82.49 Family history of ischemic heart disease and other diseases of the circulatory system; Z79.899 Other long term (current) drug therapy; Z88.5 Allergy status to narcotic agent; Z88.8 Allergy status to other drugs, medicaments and biological substances; Z98.51 Tubal ligation status; Z90.49 Acquired absence of other specified parts of digestive tract
CPT/HCPCS: 36415; 71010; 78452; 80048; 80061; 80076; 82550; 82553; 83036; 84443; 84484; 85025; 93005; 93017; 93225; 93226; 93306; 93880; 96360; 99285; A9500; G0378; J2785

== ENCOUNTER → 2017-03-08 | Day surgery (SDC) | payer BC ==
[~2017-03-08] MED LIST changes: +AMBIEN12.5 MG PO; +BUSPIRONE HCL7.5 MG PO; +CELEXA20 MG PO; +OXYCODONE-ACET1 EAC1 PO; +PERCOCET10 PO; +TIZANIDINE HCL4 M1 PO; +XANAX1 MG PO
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
--- NOTE | ~2017-03-08 | OR ---
Unit #: [id number] #: [id number] Patient: NAHOMY JIMÉNEZ [id number] [address] [place], [place] [address] [id number] O MR#: [id number] NAME: NAHOMY JIMÉNEZ ROOM: Date of Procedure: 03/08/2017 Admission Date: 03/08/2017 Surgeon: Leonardo Peter M.D. : 1965 Attending Physician: Leonardo Peter M.D. Primary Care Physician: Francisco Jaime M.D. OPERATIVE REPORT JOB NOTE: CC: [facility] PREOPERATIVE DIAGNOSES Neck pain, cervical facet disease. POSTOPERATIVE DIAGNOSES Neck pain, cervical facet disease. PROCEDURE PERFORMED Cervical facet injection x2 levels with intravenous sedation and fluoroscopic guidance for needle localization. INDICATIONS FOR PROCEDURE The patient is a 51-year-old female with return of neck pain due to known significant cervical facet disease. She refused to do radiofrequency. She does fairly well with p.r.n. cervical facet injections generally every 3 months or so. Last injections were typically helpful. DESCRIPTION OF PROCEDURE Procedure #1: Right cervical facet injection: Fluoroscopy was used to identify the location of the right C4-C5 facet. The skin lateral to this was localized with 1% lidocaine. A 22-gauge Quincke point needle was then advanced with fluoroscopic guidance to bring the needle tip to within the edge of the right C4-C5 facet joint. The patient did not complain of any pain or paresthesia. After confirming proper positioning, a dose of 1 mL of a mixture of 80 mg of Depo-Medrol and 1 mL of 0.25% bupivacaine were deposited. The needle was flushed and removed. The patient tolerated this well. Procedure #2: Left C4-C5 facet injection with fluoroscopic guidance: Fluoroscopy was used to identify the location of the left C4-C5 facet joint. The skin lateral to this was localized with 1% lidocaine. A 22-gauge Quincke point spinal needle was advanced with fluoroscopic guidance to bring the needle tip to within the edge of the left C4-C5 facet joint. The patient did not complain of pain or paresthesia. After confirming proper positioning with fluoroscopy and radiographic contrast, a dose of 1 mL of a mixture of 80 mg of Depo-Medrol and 1 mL of 0.25% bupivacaine were deposited. The needle was flushed and removed. The patient tolerated the procedure well and was discharged to the recovery room in stable condition. Unit #: [id number] #: [id number] Patient: NAHMOY JIMÉNEZ Dictated by..Ledy Lees/derek TD: 03/08/2017 13:31 JOB #: [id number] OPERATIVE REPORT Page 1 of 1 X Leonardo Peter MD X PROCEDURE OPERATIVE NOTE
== END | disposition home or self-care (01) ==
LOC: CCSC 10:51
DX: M53.82 Other specified dorsopathies, cervical region (principal); F41.9 Anxiety disorder, unspecified; F32.9 Major depressive disorder, single episode, unspecified; Z88.5 Allergy status to narcotic agent; Z88.8 Allergy status to other drugs, medicaments and biological substances; Z79.891 Long term (current) use of opiate analgesic; Z79.899 Other long term (current) drug therapy
CPT/HCPCS: J1040; J2250; J3010

== ENCOUNTER → 2017-04-05 | Outpatient (CLI) | payer BC ==
[2017-04-05 13:04] LABS: ALBUMIN SERUM 4.5 g/dL (3.5-5.0); BILIRUBIN,TOTAL 0.7 mg/dL (0.2-2.0); BUN/CREATININE RATIO 18.75; CALCIUM SERUM 9.8 mg/dL (8.4-10.2); CREATININE SERUM 0.8 mg/dL (0.6-1.4); POTASSIUM 3.6 mmol/L (3.5-5.1); PROTEIN TOTAL SERUM 6.8 g/dL (6.0-8.3)
== END | disposition home or self-care (01) ==
LOC: CAMB 10:44
PROVIDERS: Orthopaedic Surgery
DX: Z01.812 Encounter for preprocedural laboratory examination (principal)
CPT/HCPCS: 36415; 80053